=== PATIENT | female | born 1985 | race Two or more races ===

== ENCOUNTER 2023-02-25 23:51 | Emergency (ER) | payer SELFPAY | END 2023-02-26 | disposition left against medical advice (07) | LOC: MW.ED 23:51 | DX: Z53.21 Procedure and treatment not carried out due to patient leaving prior to being seen by health care provider (principal) ==

== ENCOUNTER 2023-03-23 12:00 | Emergency (ER) | payer SELFPAY | END 2023-03-23 12:28 | disposition left against medical advice (07) | LOC: MW.ED 12:00 | DX: Z53.21 Procedure and treatment not carried out due to patient leaving prior to being seen by health care provider (principal) ==

== ENCOUNTER 2023-10-19 08:12 | Emergency (ER) | payer SELFPAY ==
[2023-10-19] MEDS: LORazepam 1 MG Tab PO ONE (08:40)
== END 2023-10-19 09:19 | disposition home or self-care (01) ==
LOC: MW.ED 08:12
DX: G47.00 Insomnia, unspecified (principal)
CPT/HCPCS: 99283; A9270

== ENCOUNTER 2024-03-08 20:09 | Emergency (ER) | payer MEDICAID ==
[2024-03-08] MEDS: LORazepam 1 MG Tab PO ONE (23:30)
== END 2024-03-08 23:30 ==
LOC: MW.ED 20:09
DX: F31.12 Bipolar disorder, current episode manic without psychotic features, moderate (principal); Z75.8 Other problems related to medical facilities and other health care
CPT/HCPCS: 99284; A9270

== ENCOUNTER 2024-04-14 20:29 | Emergency (ER) | payer MEDICAID ==
[2024-04-14 20:54] LABS: BILIRUBIN,URINE NEGATIVE (NEGATIVE); COLOR,URINE YELLOW; GLUCOSE,URINE NEGATIVE (NEGATIVE); KETONES,URINE TRACE mg/dL (NEGATIVE); LEUKOCYTE ESTERASE,URINE TRACE (NEGATIVE); NITRITE,URINE NEGATIVE (NEGATIVE); OCCULT BLOOD,URINE SMALL (NEGATIVE); PROTEIN,URINE NEGATIVE (NEGATIVE); UROBILINOGEN,URINE 0.2 EU/dL (<2.0)
[2024-04-14 20:55] LABS: APPEARANCE,URINE HAZY
[2024-04-14 21:01] LABS: BACTERIA,URINE 3+ (NEGATIVE); EPITHELIAL CELLS,URINE FEW (NONE-FEW); RBC,URINE 0-1 (0-2/HPF)
== END 2024-04-14 22:00 | disposition left against medical advice (07) ==
LOC: MW.ED 20:29
DX: Z53.21 Procedure and treatment not carried out due to patient leaving prior to being seen by health care provider (principal)
CPT/HCPCS: 81001; 81025; 87086

== ENCOUNTER 2024-04-23 11:35 | Emergency (ER) | payer MEDICAID ==
[2024-04-23 12:32] LABS: APPEARANCE,URINE CLEAR; BILIRUBIN,URINE NEGATIVE (NEGATIVE); COLOR,URINE YELLOW; GLUCOSE,URINE NEGATIVE (NEGATIVE); KETONES,URINE NEGATIVE (NEGATIVE); LEUKOCYTE ESTERASE,URINE NEGATIVE (NEGATIVE); NITRITE,URINE NEGATIVE (NEGATIVE); OCCULT BLOOD,URINE LARGE (NEGATIVE); PROTEIN,URINE NEGATIVE (NEGATIVE); UROBILINOGEN,URINE 0.2 EU/dL (<2.0)
[2024-04-23 12:51] LABS: BACTERIA,URINE FEW (NEGATIVE); EPITHELIAL CELLS,URINE FEW (NONE-FEW); MUCUS,URINE LIGHT (NONE-MOD); RBC,URINE 0-1 (0-2/HPF); WBC,URINE 0-1 (0-5/HPF)
[2024-04-23 13:17] LABS: CANDIDA DNA PROBE NEGATIVE (NEGATIVE); GARDNERELLA DNA PROBE POSITIVE (NEGATIVE); TRICHOMONAS DNA PROBE NEGATIVE (NEGATIVE)
[2024-04-23 14:02] LABS: C. TRACHOMATIS BY PCR NOT DETECTED; N. GONORRHOEAE BY PCR NOT DETECTED
== END 2024-04-23 13:37 ==
LOC: MW.ED 11:35
DX: N76.0 Acute vaginitis (principal); Z75.8 Other problems related to medical facilities and other health care
CPT/HCPCS: 81001; 81025; 87480; 87491; 87510; 87591; 87660; 99284

== ENCOUNTER 2024-05-14 02:59 | Emergency (ER) | payer MEDICAID | END 2024-05-14 03:22 | disposition left against medical advice (07) | LOC: MW.ED 02:59 | DX: F10.10 Alcohol abuse, uncomplicated (principal); F41.9 Anxiety disorder, unspecified; F31.9 Bipolar disorder, unspecified; Y90.9 Presence of alcohol in blood, level not specified | CPT/HCPCS: 99282; 99284 ==

== ENCOUNTER 2024-09-07 13:12 | Emergency (ER) | payer MEDICAID ==
[2024-09-07 14:14] LABS: GLUCOSE,URINE NEGATIVE (NEGATIVE); OCCULT BLOOD,URINE NEGATIVE (NEGATIVE)
[2024-09-07 14:16] LABS: APPEARANCE,URINE HAZY
== END 2024-09-07 14:49 | disposition home or self-care (01) ==
LOC: MW.ED 13:12
DX: Z32.01 Encounter for pregnancy test, result positive (principal); Z75.3 Unavailability and inaccessibility of health-care facilities; Z79.899 Other long term (current) drug therapy
CPT/HCPCS: 81003; 81025; 99282; 99283

== ENCOUNTER 2025-01-24 14:05 | Inpatient (IN) | payer MEDICAID ==
[2025-01-24] MEDS ORDERED: Ondansetron 4 MG Tab.DIS PO ONE (14:34)
[2025-01-24] MEDS ORDERED: Oxytocin/0.9 % Sodium Chloride 30 UNIT/500 ML BAG ONE (15:22)
[2025-01-24] MEDS ORDERED: Butorphanol 1 MG/ML SDV IVPUSH PRN (15:37)
[2025-01-24] MEDS ORDERED: Water For Irrigation,Sterile 1,000 ML Container IRR PRN (15:37)
[2025-01-24] MEDS ORDERED: Sodium Chloride 0.9% 10 ML Syringe FLUSH PRN (15:37)
[2025-01-24] MEDS ORDERED: Sodium Chloride 0.9% 2.5 ML Syringe FLUSH PRN (15:37)
[2025-01-24] MEDS ORDERED: Carboprost Tromethamine 250 MCG/1 mL Vial IM PRN (15:37)
[2025-01-24] MEDS ORDERED: Lactated Ringers 1,000 ML IV SCH (15:45)
[2025-01-24 15:50] LABS: MEAN PLATELET VOLUME 10.1 fL (9.4-12.3); NRBC ABSOLUTE 0.00 K/uL (0.00-0.02); NRBC PERCENT 0.0 /100WBC (0.0-0.2); PLATELET COUNT,PLT 319 K/uL (150-400); RED BLOOD CELL COUNT 4.69 M/uL (4.10-5.30); WHITE BLOOD CELL COUNT,WBC 11.41 K/uL (3.9-11.3)
[2025-01-24] MEDS ORDERED: Aluminum Hydroxide/Magnesium Hydroxide/Simethicone Susp 30 ML Cup PO PRN (16:43)
[2025-01-24] MEDS ORDERED: Benzocaine/Menthol 20%-0.5% Spray 78 GM Cannister TOP PRN (16:43)
[2025-01-24] MEDS ORDERED: Lanolin 100% Cream 7 GM Tube TOP PRN (16:43)
[2025-01-24] MEDS ORDERED: Ondansetron 4 MG/2 ML SDV IVPUSH PRN (16:43)
[2025-01-24] MEDS ORDERED: Witch Hazel Medicated Pads 40/Jar TOP PRN (16:43)
[2025-01-24 17:02] LABS: PH,UMBILICAL ARTERIAL 7.25 (7.18-7.38); PH,UMBILICAL VENOUS 7.26 (7.25-7.45)
[2025-01-24] MEDS: Oxytocin/0.9 % Sodium Chloride 30 UNIT/500 ML BAG IV SCH (17:33)
[2025-01-25 05:44] LABS: MEAN PLATELET VOLUME 9.8 fL (9.4-12.3); NRBC ABSOLUTE 0.00 K/uL (0.00-0.02); NRBC PERCENT 0.0 /100WBC (0.0-0.2); PLATELET COUNT,PLT 292 K/uL (150-400); RED BLOOD CELL COUNT 4.32 M/uL (4.10-5.30); WHITE BLOOD CELL COUNT,WBC 14.00 K/uL (3.9-11.3)
== END 2025-01-25 18:35 | disposition home or self-care (01) | DRG 806 ==
LOC: MW.OBCHECK 14:05 → MW.OB 14:27 → MW.OBCHECK 15:46 → OBSVTOIN 16:43 → MW.OB 19:30
PROVIDERS: ADMIT Obstetrics & Gynecology; ATTEND Obstetrics & Gynecology Obstetrics
PROC: 10E0XZZ Delivery of Products of Conception, External Approach (ICD-10-PCS; principal; 2025-01-24)
DX: O48.0 Post-term pregnancy (principal); O98.52 Other viral diseases complicating childbirth; Z37.0 Single live birth; O77.0 Labor and delivery complicated by meconium in amniotic fluid; B00.9 Herpesviral infection, unspecified; O99.214 Obesity complicating childbirth; Z3A.40 40 weeks gestation of pregnancy
CPT/HCPCS: 36415; 59025; 59409; 82803; 85027; 86592; 86850; 86900; 86901; A9270-GY; J2003; J2590